=== PATIENT | female | born 1970 | race Caucasian/White ===

== ENCOUNTER 2020-05-18 19:19 | Emergency (ER) | payer MEDICAID ==
[~2020-05-18] VITALS: Ht 157.5 cm; Wt 97.5 kg
[2020-05-18 19:56] VITALS: BP 170/90
--- NOTE | 2020-05-18 20:09 | NUR ---
PT TAKEN TO XRAY
--- NOTE | 2020-05-18 20:17 | NUR ---
PT RETURN FROM RADIOLOGY TO ER LOBBY
--- NOTE | 2020-05-18 21:08 | NUR ---
PATIENT BIB SELF, AMBULATORY, C/O POSTERIOR LEFT KNEE PAIN X 2 WEEKS, PAIN 8/10. 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 PER PATIENT PAIN HAS BEEN PREVIOUSLY RELEIVED BY [facility] AT HOME. DENIES ANY INJURY. CMS IN-TACT. PULSES EQUAL AND STRONG BILATERALLY. MED HX: NONE ALLERGIES: NONE
[2020-05-18] MEDS ORDERED: IBUP-2213 PO (21:24)
--- NOTE | 2020-05-18 21:26 | NUR ---
3 INCH MISHEL WRAP PLACED ON PT L KNEE. +CSM
--- NOTE | 2020-05-18 21:34 | NUR ---
Dr. Bonner examining patient.
[2020-05-18 21:40] VITALS: BP 170/90
== END 2020-05-18 21:40 | disposition home or self-care (01) ==
LOC: MED 19:19
DX: M71.22 Synovial cyst of popliteal space [Baker], left knee (principal); Z79.899 Other long term (current) drug therapy
CPT/HCPCS: 73562; 99283